=== PATIENT | male | born 1995 | race Hispanic/Latino ===

== ENCOUNTER 2017-12-16 01:20 | Emergency (ER) | payer SELFPAY ==
[2017-12-16] MEDS ORDERED: SODIUM CHLORIDE 0.9% 1000ML 1,000 ML IV ONE (02:30)
[2017-12-16] MEDS ORDERED: ONDANSETRON HCL MDV 20ML 2 MG/ML VIAL ONE (02:30)
[2017-12-16 03:33] LABS: BASOPHILS % (AUTO) 0.3 % (0.0-5.0); HEMATOCRIT 43.7 % (42-54); LYMPHOCYTES % (AUTO) 27.8 % (21.0-51.0); MEAN CORPUSCULAR HEMOGLOBIN 30.1 pg (27.0-33.0); MEAN CORPUSCULAR HGB CONC 34.3 g/dL (32.0-36.0); MEAN CORPUSCULAR VOLUME 87.8 fL (80-100); MONOCYTES % (AUTO) 6.8 % (3.0-13.0); NEUTROPHILS % (AUTO) 64.1 % (40.0-77.0); PLATELET COUNT (AUTO) 234 K/uL (130-400); RED BLOOD CELL COUNT(AUTO) 4.98 MIL/uL (4.50-6.20); RED CELL DISTRIBUTION WIDTH 13.4 % (11.0-15.5); WHITE BLOOD COUNT (AUTO) 9.6 K/uL (4.8-10.8)
[2017-12-16 03:35] LABS: APPEARANCE,URINE CLEAR (CLEAR); BILIRUBIN,URINE Small (NEGATIVE); COLOR,URINE Dark Yellow (YELLOW); GLUCOSE, URINE (UA) Negative (NEGATIVE); KETONES,URINE Trace mg/dL (NEGATIVE); LEUKOCYTE ESTERASE ,URINE Negative (NEGATIVE); NITRATE,URINE Negative (NEGATIVE); OCCULT BLOOD,URINE Negative (NEGATIVE); PH,URINE 5.5 (5.0-8.0); PROTEIN,URINE Negative (NEGATIVE)
[2017-12-16 03:52] LABS: POTASSIUM 3.7 mmol/L (3.5-5.1)
[2017-12-16 04:02] LABS: ALBUMIN 3.9 g/dL (3.5-5.0); TOTAL PROTEIN, SERUM 7.6 g/dL (6.0-8.3)
[2017-12-16 04:09] LABS: BACTERIA,URINE Few /HPF (None Seen); MUCUS,URINE Few LPF (None Seen); RBC,URINE None Seen /HPF (0-1); WBC,URINE 0-1 /HPF (0-1)
== END 2017-12-16 07:05 | disposition home or self-care (01) ==
LOC: EDH 01:20
DX: R10.9 Unspecified abdominal pain (principal); R19.7 Diarrhea, unspecified; Z91.018 Allergy to other foods
CPT/HCPCS: 36415; 80053; 81001; 82150; 83690; 85025; 93005; 96361; 96374; 99285; J7030

== ENCOUNTER 2020-09-21 20:08 | Emergency (ER) | payer SELFPAY ==
[2020-09-21] MEDS ORDERED: ACETAMINOPHEN WITH CODEINE 1 TAB TAB ONE (20:32)
== END 2020-09-21 22:34 | disposition home or self-care (01) ==
LOC: EDH 20:08
DX: S00.83XA Contusion of other part of head, initial encounter (principal); Z91.018 Allergy to other foods; W20.8XXA Other cause of strike by thrown, projected or falling object, initial encounter; Y93.89 Activity, other specified; Y92.89 Other specified places as the place of occurrence of the external cause; Y99.8 Other external cause status
CPT/HCPCS: 70450; 72125

== ENCOUNTER 2021-10-13 21:59 | Emergency (ER) | payer OTHER ==
[~2021-10-13] VITALS: Ht 170.2 cm; Wt 77.1 kg
[2021-10-13 22:25] LABS: BASOPHILS % (AUTO) 0.3 % (0.0-5.0); EOSINOPHILS % (AUTO) 0.2 % (0.0-8.0); HEMATOCRIT 42.4 % (42-54); LYMPHOCYTES % (AUTO) 22.2 % (21.0-51.0); MEAN CORPUSCULAR HEMOGLOBIN 29.7 pg (27.0-33.0); MEAN CORPUSCULAR HGB CONC 34.2 g/dL (32.0-36.0); MEAN CORPUSCULAR VOLUME 86.7 fL (79-99); MONOCYTES % (AUTO) 5.2 % (3.0-13.0); NEUTROPHILS % (AUTO) 71.7 % (40.0-77.0); PLATELET COUNT (AUTO) 289 K/uL (130-400); RED BLOOD CELL COUNT(AUTO) 4.89 MIL/uL (4.50-6.20); RED CELL DISTRIBUTION WIDTH 12.5 % (11.0-15.5); WHITE BLOOD COUNT (AUTO) 13.2 K/uL (4.8-10.8)
[2021-10-13] MEDS ORDERED: FAMOTIDINE 20MG VIAL IV ONE (22:30)
[2021-10-13] MEDS ORDERED: ONDANSETRON 4MG INJ IVP ONE (22:30)
[2021-10-13] MEDS ORDERED: 0.9%NACL 1000ML 1,000 ML IV ONE (22:30)
[2021-10-13] MEDS ORDERED: DICYCLOMINE HCL 20 MG TAB PO ONE (22:30)
[2021-10-13 22:52] LABS: CARBON DIOXIDE 24 mmol/L (21-32); CHLORIDE 104 mmol/L (101-111); GLOMERULAR FILTR. RATE CALC 97 mL/min (>60); GLUCOSE,RANDOM 96 mg/dL (70-105); POTASSIUM 3.3 mmol/L (3.5-5.1); SODIUM SERUM 142 mmol/L (136-145); UREA NITROGEN, BLOOD 12 mg/dL (7-18)
[2021-10-13 22:58] LABS: ALANINE AMINOTRANSFERASE 28 U/L (12-78); ALBUMIN 4.1 g/dL (3.5-5.0); ASPARTATE AMINOTRANSFERASE 21 U/L (10-37); BILIRUBIN,TOTAL 0.8 mg/dL (0.2-1.0); TOTAL PROTEIN, SERUM 7.9 g/dL (6.0-8.3)
[2021-10-13 22:58] LABS: APPEARANCE,URINE Clear (CLEAR); BILIRUBIN,URINE Negative (NEGATIVE); COLOR,URINE Yellow (YELLOW); GLUCOSE, URINE (UA) Negative (NEGATIVE); KETONES,URINE 40 mg/dL (NEGATIVE); LEUKOCYTE ESTERASE ,URINE Negative (NEGATIVE); NITRATE,URINE Negative (NEGATIVE); OCCULT BLOOD,URINE Trace (NEGATIVE); PH,URINE 5.5 (5.0-8.0); PROTEIN,URINE Negative (NEGATIVE); UROBILINOGEN,URINE 0.2 mg/dL (0.2-1.0)
[2021-10-13 23:02] LABS: LIPASE < 50 U/L (114-286)
[2021-10-13 23:07] LABS: BACTERIA,URINE None Seen /HPF (None Seen); RBC,URINE None Seen /HPF (0-1); WBC,URINE None Seen /HPF (0-1)
[2021-10-13] MEDS ORDERED: IOHEXOL 350 MG/ML 100ML INFUS..BTL IV ONE (23:27)
[2021-10-13] MEDS ORDERED: ONDA4TAB10 PO (23:56)
[2021-10-13] MEDS ORDERED: L.AC1CAP6 PO (23:56)
[2021-10-13] MEDS ORDERED: DICY20TA2 PO (23:56)
[2021-10-14] MEDS ORDERED: POTASSIUM BICARB/CIT AC 25 MEQ TABLET.EFF PO ONE
[2021-10-14 01:01] VITALS: BP 122/64
== END 2021-10-14 01:02 | disposition home or self-care (01) ==
LOC: EDH 21:59
DX: K52.9 Noninfective gastroenteritis and colitis, unspecified (principal); R07.89 Other chest pain
CPT/HCPCS: 36415; 74177; 80053; 81001; 83690; 84484; 85025; 93005; 96361; 96374; 96375; 99285; J2405; J3490; J7030; Q9967

== ENCOUNTER 2022-11-09 14:07 | Emergency (ER) | payer OTHER ==
[~2022-11-09] VITALS: Ht 170.2 cm; Wt 86.2 kg
[~2022-11-09 14:07] MED LIST: DICY20TA2 PO; L.AC1CAP6 PO; ONDA4TAB10 PO
[2022-11-09] MEDS ORDERED: KETOROLAC 15MG/ML VIAL (15MG/ML) ONE (17:20)
[2022-11-09 17:26] VITALS: BP 127/96
[2022-11-09] MEDS ORDERED: KETOROLAC 60 MG VIAL (30MG/ML) IM ONE (17:30)
== END 2022-11-09 17:38 | disposition home or self-care (01) ==
LOC: EDH 14:07
DX: M54.2 Cervicalgia (principal); R07.89 Other chest pain; R51.9 Headache, unspecified; F17.200 Nicotine dependence, unspecified, uncomplicated; Z79.899 Other long term (current) drug therapy; V89.2XXA Person injured in unspecified motor-vehicle accident, traffic, initial encounter; Y93.I9 Activity, other involving external motion; Y92.488 Other paved roadways as the place of occurrence of the external cause; Y99.8 Other external cause status
CPT/HCPCS: 99285; 70450; 72125; 96372; J1885

== ENCOUNTER 2024-03-10 02:57 | Emergency (ER) | payer SELFPAY ==
[~2024-03-10] VITALS: Ht 170.2 cm; Wt 95.3 kg
[~2024-03-10 02:57] MED LIST changes: +ONDA-243 PO; -ONDA4TAB10 PO
[2024-03-10] MEDS: KETOROLAC 60 MG VIAL (30MG/ML) IM ONE (04:02)
[2024-03-10] MEDS: CYCLOBENZAPRINE HCL 10 MG TABLET PO ONE (04:02)
[2024-03-10] MEDS: SOLU-MEDROL 125MG VIAL IVP ONE (04:02)
[2024-03-10 04:56] VITALS: BP 144/89; PULSE 91; RESP 20; O2SAT 100
[2024-03-10] MEDS: MORPHINE 4 MG SYG IVP ONE (05:09)
[2024-03-10] MEDS ORDERED: LIDO700A30 TP (05:09)
[2024-03-10] MEDS: LIDOCAINE 5% TOPICAL PATCH TP ONE (05:15)
== END 2024-03-10 05:49 | disposition home or self-care (01) ==
LOC: EDH 02:57
DX: M51.36 Other intervertebral disc degeneration, lumbar region (principal)
CPT/HCPCS: 99285; 96374; 72131; 96375; 96372; J2919; J2270; J1885